=== PATIENT | female | born 1990 | race Two or more races ===

== ENCOUNTER 2023-04-17 18:18 | Emergency (ER) | payer MEDICAID ==
[~2023-04-17] VITALS: Ht 154.9 cm; Wt 47.9 kg
[2023-04-17 21:21] VITALS: BP 150/83; PULSE 93; RESP 20; TEMP 97.9; O2SAT 100
== END 2023-04-17 21:38 | disposition home or self-care (01) ==
LOC: ER 18:18
DX: S63.610A Unspecified sprain of right index finger, initial encounter (principal); Z88.0 Allergy status to penicillin; W22.8XXA Striking against or struck by other objects, initial encounter; Y93.89 Activity, other specified; Y92.89 Other specified places as the place of occurrence of the external cause; Y99.8 Other external cause status
CPT/HCPCS: 29130; 73140